=== PATIENT | female | born 1985 | race American Indian/Alaskan Native ===

== ENCOUNTER 2018-12-14 14:18 | Emergency (ER) | payer SELFPAY ==
--- NOTE | 2018-12-14 14:30 | Event Note ---
ED Screening Note Date of service: 12/14/18 Time: 14:27 ED Screening Note: 33 y/o female comes in for pelvic pain and vag bleeding This initial assessment/diagnostic orders/clinical plan/treatment(s) is/are subject to change based on patients health status, clinical progression and re-assessment by fellow clinical providers in the ED. Further treatment and workup at subsequent clinical providers discretion. Patient/guardian urged not to elope from the ED as their condition may be serious if not clinically assessed and managed. Initial orders include:
[2018-12-14 15:01] LABS: Basophils # (Auto) 0.1 K/mm3 (0.0-0.1); Basophils % (Auto) 0.4 % (0.0-1.8); Eosinophils # (Auto) 0.2 K/mm3 (0.0-0.4); Eosinophils % (Auto) 1.7 % (0.0-4.3); Hematocrit 41.2 % (30.3-42.9); Hemoglobin 13.5 gm/dl (10.1-14.3); Lymphocytes # (Auto) 2.4 K/mm3 (1.2-5.4); Lymphocytes % (Auto) 18.9 % (13.4-35.0); Mean Corpuscular HGB Conc 33 % (30-34); Mean Corpuscular Volume 85 fl (79-97); Monocytes # (Auto) 0.7 K/mm3 (0.0-0.8); Monocytes % (Auto) 5.9 % (0.0-7.3); Platelet Count 188 K/mm3 (140-440); Red Blood Count 4.85 M/mm3 (3.65-5.03); Red Cell Distribution Width 13.7 % (13.2-15.2)
[2018-12-14 15:25] LABS: Alanine Aminotransferase 14 units/L (7-56); BUN/Creatinine Ratio 20; Blood Urea Nitrogen 14 mg/dL (7-17); Hemolysis Index 68
[2018-12-14] MEDS ORDERED: NACL 0.9% 1000 ML 1,000 ML IV ONE (16:06)
[2018-12-14] MEDS ORDERED: TORADOL IV ONE (16:06)
--- NOTE | 2018-12-14 16:17 | Emergency Department Report ---
<PIA DELGADO P - Last Filed: 12/14/18 17:04> ED Female HPI - General Chief complaint: Vaginal Bleeding Stated complaint: ABD PAIN/EXTREME Time Seen by Provider: 12/14/18 14:26 Source: patient Mode of arrival: Wheelchair Limitations: No Limitations - History of Present Illness Initial comments: Reports hx of ovarian cyst. Reports she has been having vaginal bleeding periodically for over a month. Denies seeing ripsaw operator for symptoms. MD Complaint: vaginal bleeding, pelvic pain -: Gradual, days(s) (approximately 1 week gradually worsening) Location: suprapubic Radiation: non-radiating Severity: moderate Severity scale (0 -10): 4 Quality: cramping, aching Consistency: intermittent Improves with: none Worsens with: none Are you Now?: No Associated Symptoms: vaginal bleeding, abdominal pain. denies: vaginal d ischarge, nausea/vomiting, fever/chills, headaches, loss of appetite, dysuria, hematuria, rash, seizure, shortness of breath, syncope, weakness - Related Data Home Medications Medication Instructions Recorded Confirmed Last Taken ALBUTEROL Inhaler (OR & NICU) 2 puff INHALATION Q4-6H PRN 05/02/14 12/02/14 Unknown [ProAir HFA Inhaler] Previous Rx's Medication Instructions Recorded Last Taken Type Metoprolol [Lopressor TAB] 50 mg PO DAILY #60 tablet 05/02/14 12/01/14 Rx hydroCHLOROthiazide [HCTZ] 25 mg PO DAILY #60 tablet 05/02/14 12/01/14 Rx Butalb/Acetamin/Caff 50-325-40 1 each PO Q4H PRN #30 tablet 12/02/14 Unknown Rx [Fioricet] HYDROcodone/APAP 5-325 [[place] 1 each PO Q6HR PRN #20 tablet 12/02/14 Unknown Rx 5-325 mg TAB] Promethazine [Phenergan TAB] 25 mg PO Q6HR PRN #30 tab 12/02/14 Unknown Rx Ibuprofen [Motrin 800 MG tab] 800 mg PO Q8HR PRN #10 tablet 12/14/18 Unknown Rx Nitrofurantoin [place]/M-Cryst 100 mg PO Q12HR #14 capsule 12/14/18 Unknown Rx [Macrobid CAP] medroxyPROGESTERone ACETATE 5 mg PO QDAY #7 tablet 12/14/18 Unknown Rx [Provera] traMADol [Ultram] 50 mg PO Q6HR PRN #12 tablet 12/14/18 Unknown Rx Allergies Allergy/AdvReac Type Severity Reaction Status Date / Time No Known Allergies Allergy Unverified 05/02/14 10:36 ED Review of Systems Other: GENERAL: No weight change, fatigue, fever, chills, or night sweats SKIN: No changes in skin or hair, no itching, no rashes, no jaundice HEAD: No trauma, headache, or visual changes EYES: No blurriness, tearing, itching, acute visual loss, conjunctival discoloration, or scleral icterus EARS: No hearing loss, tinnitus, vertigo, or earache NOSE: No rhinorrhea, stuffiness, sneezing, itching, or epistaxis MOUTH: No bleeding gums, hoarseness, sore throat, or swelling CARDIAC: No new murmur, chest pain, palpitations, dyspnea on exertion, orthopnea, PND, or edema RESPIRATORY: No shortness of breath, wheeze, cough, sputum production, hemoptysis, pneumonia, asthma, bronchitis, or emphysema GI: No change in appetite, nausea, vomiting, dysphagia, diarrhea, constipation, hematemesis, melena, hematochezia, or abdominal pain URINARY: No frequency, urgency, polyuria, dysuria, hematuria, or incontinence MUSCULOSKELETAL: No muscle weakness, joint stiffness, decrease in range of motion, redness, swelling NEUROLOGIC: No headache, loss of sensation, numbness, tingling, tremors, weakness, paralysis, seizures HEMATOLOGIC: No anemia, easy bruising, bleeding, petechiae, or purpura ENDOCRINE: No hot or cold intolerance, sweating, polyuria, polydipsia or, polyphagia no thyroid problems PSYCHIATRIC: No change in mood, no anxiety, no depression GENITAL: Female: Vaginal bleeding for approximately one month. Pelvic pain for approxi mately 1 week. No dishcarge ED Past Medical Hx - Past Medical History Previous Medical History?: Yes Hx Hypertension: Yes Hx Headaches / Migraines: Yes Hx Asthma: Yes Additional medical history: Ovarian cysts - Surgical History Additional Surgical History: tubal ligation - Social History Smoking Status: Current Every Day Smoker Substance Use Type: None - Medications Home Medications: Home Medications Medication Instructions Recorded Confirmed Last Taken Type ALBUTEROL Inhaler (OR & NICU) 2 puff INHALATION Q4-6H PRN 05/02/14 12/02/14 Unknown History [ProAir HFA Inhaler] Metoprolol [Lopressor TAB] 50 mg PO DAILY #60 tablet 05/02/14 12/02/14 12/01/14 Rx hydroCHLOROthiazide [HCTZ] 25 mg PO DAILY #60 tablet 05/02/14 12/02/14 12/01/14 Rx Butalb/Acetamin/Caff 50-325-40 1 each PO Q4H PRN #30 tablet 12/02/14 Unknown Rx [Fioricet] HYDROcodone/APAP 5-325 [[place] 1 each PO Q6HR PRN #20 tablet 12/02/14 Unknown Rx 5-325 mg TAB] Promethazine [Phenergan TAB] 25 mg PO Q6HR PRN #30 tab 12/02/14 Unknown Rx Ibuprofen [Motrin 800 MG tab] 800 mg PO Q8HR PRN #10 tablet 12/14/18 Unknown Rx Nitrofurantoin [place]/M-Cryst 100 mg PO Q12HR #14 capsule 12/14/18 Unknown Rx [Macrobid CAP] medroxyPROGESTERone ACETATE 5 mg PO QDAY #7 tablet 12/14/18 Unknown Rx [Provera] traMADol [Ultram] 50 mg PO Q6HR PRN #12 tablet 12/14/18 Unknown Rx ED Physical Exam - General Limitations: No Limitations - Other Other exam information: GENERAL: Patient in no acute distress HEAD: Normocephalic, atraumatic EYES: PERRLA, EOM intact, no scleral icterus, no conjunctival hemorrhage, visual chin and acuity wnl NOSE: No tenderness, discharge, sinus tenderness MOUTH: No erythema, bleeding, exudate HEART: Regular rate and rhythm, no murmur, S1-S2 are auscultated, pulses are symmetric LUNGS: Bilateral breath sounds, No tachypnea, No retractions, No wheezing, rales, rhonchi ABDOMEN: Normal bowel sounds, abdomen soft, no tenderness, no rebound, no guarding, no distention, no masses, no CVA tenderness MUSCULOSKELETAL: Normal joint range of motion, no redness, no swelling, no tenderness NEUROLOGIC: GCS 15, Alert and Oriented x3, Cranial nerves intact, normal sensation, normal strength, normal gait, no cerebellar deficit, NIHSS 0 SKIN: Skin is warm and dry, no wounds, no rashes ED Medical Decision Making - Lab Data Result diagrams: 12/14/18 14:48 12/14/18 14:48 - Medical Decision Making At [address] Stone updated and agrees to follow up U/S result. ED Disposition Clinical Impression: DUB (dysfunctional uterine bleeding) UTI (urinary tract infection) Qualifiers: Urinary tract infection type: acute cystitis Hematuria presence: with hematuria Qualified Code(s): N30.01 - Acute cystitis with hematuria Disposition: TO HOME OR SELFCARE Condition: Stable Instructions: Urinary Tract Infection in Women (ED), Dysfunctional Uterine Bleeding (ED) Referrals: PRIMARY CAREMD [Primary Care Provider] - 3-5 Days <JAMILAH STONE - Last Filed: 12/14/18 19:01> ED Review of Systems ROS: Stated complaint: ABD PAIN/EXTREME Other details as noted in HPI ED Course Vital Signs 12/14/18 14:23 Temperature 98.6 F Pulse Rate 86 Respiratory 20 Rate Blood Pressure 180/104 O2 Sat by Pulse 98 Oximetry ED Medical Decision Making - Lab Data Result diagrams: 12/14/18 14:48 12/14/18 14:48 Lab Results 12/14/18 12/14/18 12/14/18 Range/Units 14:48 14:48 14:48 WBC 12.8 H (4.5-11.0) K/mm3 RBC 4.85 (3.65-5.03) M/mm3 Hgb 13.5 (10.1-14.3) gm/dl Hct 41.2 (30.3-42.9) % MCV 85 (79-97) fl MCH 28 (28-32) pg MCHC 33 (30-34) % RDW 13.7 (13.2-15.2) % Plt Count 188 (140-440) K/mm3 Lymph % (Auto) 18.9 (13.4-35.0) % [place] % (Auto) 5.9 (0.0-7.3) % Eos % (Auto) 1.7 (0.0-4.3) % Baso % (Auto) 0.4 (0.0-1.8) % Lymph # 2.4 (1.2-5.4) K/mm3 [place] # 0.7 (0.0-0.8) K/mm3 Eos # 0.2 (0.0-0.4) K/mm3 Baso # 0.1 (0.0-0.1) K/mm3 Seg Neutrophils % 73.1 H (40.0-70.0) % Seg Neutrophils # 9.3 H (1.8-7.7) K/mm3 Sodium 135 L (137-145) mmol/L Potassium 4.2 (3.6-5.0) mmol/L Chloride 99.8 (98-107) mmol/L Carbon Dioxide 21 L (22-30) mmol/L Anion Gap 18 mmol/L BUN 14 (7-17) mg/dL Creatinine 0.7 (0.7-1.2) mg/dL Estimated GFR > 60 ml/min BUN/Creatinine Ratio 20 % Glucose 95 (65-100) mg/dL Calcium 9.0 (8.4-10.2) mg/dL Total Bilirubin 0.20 (0.1-1.2) mg/dL AST 19 (5-40) units/L ALT 14 (7-56) units/L Alkaline Phosphatase 92 (35-129) units/L Total Protein 7.9 (6.3-8.2) g/dL Albumin 4.0 (3.9-5) g/dL Albumin/Globulin Ratio 1.0 % HCG, Qual Negative (Negative) Urine Color (Yellow) Urine Turbidity (Clear) Urine pH (5.0-7.0) Ur Specific [place] (1.003-1.030) Urine Protein (Negative) mg/dL Urine Glucose (UA) (Negative) mg/dL Urine Ketones (Negative) mg/dL Urine Blood (Negative) Urine Nitrite (Negative) Urine Bilirubin (Negative) Urine Urobilinogen (<2.0) mg/dL Ur Leukocyte Esterase (Negative) Urine WBC (Auto) (0.0-6.0) /HPF Urine RBC (Auto) (0.0-6.0) /HPF U Epithel Cells (Auto) (0-13.0) /HPF Urine Opiates Screen Urine Methadone Screen Ur Barbiturates Screen Ur Phencyclidine Scrn Ur Amphetamines Screen U Benzodiazepines Scrn Urine Cocaine Screen U Marijuana (THC) Screen Drugs of Abuse Note 12/14/18 12/14/18 Range/Units 16:37 16:37 WBC (4.5-11.0) K/mm3 RBC (3.65-5.03) M/mm3 Hgb (10.1-14.3) gm/dl Hct (30.3-42.9) % MCV (79-97) fl MCH (28-32) pg MCHC (30-34) % RDW (13.2-15.2) % Plt Count (140-440) K/mm3 Lymph % (Auto) (13.4-35.0) % [place] % (Auto) (0.0-7.3) % Eos % (Auto) (0.0-4.3) % Baso % (Auto) (0.0-1.8) % Lymph # (1.2-5.4) K/mm3 [place] # (0.0-0.8) K/mm3 Eos # (0.0-0.4) K/mm3 Baso # (0.0-0.1) K/mm3 Seg Neutrophils % (40.0-70.0) % Seg Neutrophils # (1.8-7.7) K/mm3 Sodium (137-145) mmol/L Potassium (3.6-5.0) mmol/L Chloride (98-107) mmol/L Carbon Dioxide (22-30) mmol/L Anion Gap mmol/L BUN (7-17) mg/dL Creatinine (0.7-1.2) mg/dL Estimated GFR ml/min BUN/Creatinine Ratio % Glucose (65-100) mg/dL Calcium (8.4-10.2) mg/dL Total Bilirubin (0.1-1.2) mg/dL AST (5-40) units/L ALT (7-56) units/L Alkaline Phosphatase (35-129) units/L Total Protein (6.3-8.2) g/dL Albumin (3.9-5) g/dL Albumin/Globulin Ratio % HCG, Qual (Negative) Urine Color Straw (Yellow) Urine Turbidity Clear (Clear) Urine pH 5.0 (5.0-7.0) Ur Specific [place] 1.010 (1.003-1.030) Urine Protein <15 mg/dl (Negative) mg/dL Urine Glucose (UA) Neg (Negative) mg/dL Urine Ketones Neg (Negative) mg/dL Urine Blood Lg (Negative) Urine Nitrite Neg (Negative) Urine Bilirubin Neg (Negative) Urine Urobilinogen < 2.0 (<2.0) mg/dL Ur Leukocyte Esterase Mod (Negative) Urine WBC (Auto) 22.0 H (0.0-6.0) /HPF Urine RBC (Auto) 39.0 (0.0-6.0) /HPF U Epithel Cells (Auto) 1.0 (0-13.0) /HPF Urine Opiates Screen Presumptive negative Urine Methadone Screen Presumptive negative Ur Barbiturates Screen Presumptive negative Ur Phencyclidine Scrn Presumptive negative Ur Amphetamines Screen Presumptive negative U Benzodiazepines Scrn Presumptive negative Urine Cocaine Screen Presumptive negative U Marijuana (THC) Screen Presumptive positive Drugs of Abuse Note Disclamer - Radiology Data [facility] [address] [place] [address] Ultrasound Report Signed Patient: ROCHELLE ANTOINE MR#: [id number] : 1985 Acct:[id number] Age/Sex: 33 / F ADM Date: 12/14/18 Loc: ED Attending Dr: Ordering Physician: PIA DELGADO MD Date of Service: 12/14/18 Procedure(s): US pelvis duplex doppler comp Accession Number(s): [id number] cc: PIA DELGADO MD ULTRASOUND PELVIS INDICATION: Pelvic pain for one week. TECHNIQUE: Transabdominal. Duplex Color Doppler used: Yes. COMPARISON: None available FINDINGS: Uterus: Present. Size: 8.8 x 5.2 x 7.0 cm. Endometrial complex: Normal measuring 0.8 cm. Mass lesions: None. Additional findings: None. Right Ovary: Size: 2.3 x 1.8 x 2.2 cm Blood flow: Normal. Cyst or mass: None. Left Ovary: Size: 2.5 x 1.9 x 1.5 cm Blood flow: Normal. Cyst or mass: None. Urinary Bladder: Normal. Free Fluid: None. Additional Findings: None. IMPRESSION: No acute sonographic abnormality of the pelvis. Signer Name: Los Bernard MD Signed: 12/14/2018 6:09 PM Workstation Name: [id number] Transcribed By: MN Dictated By: Los Bernard MD Electronically Authenticated By: Los Bernard MD Signed Date/Time: 08/24/19 1809 - Medical Decision Making Patient's ultrasound was negative for any acute process. The patient states she's had abnormal heavy vaginal bleeding for approximately a week which is abnormal for her. Patient states she has been passing clots. She has some suprapubic pain as well. Patient be referred to her ELECTRONICS WORKER for further management for the dysfunctional uterine bleeding. Patient does have some moderate leuk esterase and some WBCs in her urine will be also treated with antibiotics for UTI. Patient discharged home. Critical care attestation.: If time is entered above; I have spent that time in minutes in the direct care of this critically ill patient, excluding procedure time. ED Disposition Is pt being admited?: No Does the pt Need Aspirin: No Time of Disposition: 19:00
[2018-12-14 17:07] LABS: Bilirubin,Urine NEG (Negative); Blood,Urine LG (Negative); Color,Urine Straw (Yellow); Protein,Urine <15 mg/dL mg/dL (Negative); Urobilinogen,Urine < 2.0 mg/dL (<2.0)
[2018-12-14 17:16] LABS: Amphetamine Screen,Urine PRESUMPTIVE NEGATIVE; Benzodiazepines Screen,Urine PRESUMPTIVE NEGATIVE; Cocaine Screen,Urine PRESUMPTIVE NEGATIVE; Methadone Screen,Urine PRESUMPTIVE NEGATIVE; Opiate Screen,Urine PRESUMPTIVE NEGATIVE
[2018-12-14 17:43] LABS: Cannabinoid Screen,Urine PRESUMPTIVE POSITIVE
--- NOTE | 2018-12-14 18:13 | Ultrasound Report ---
ULTRASOUND PELVIS INDICATION: Pelvic pain for one week. TECHNIQUE: Transabdominal. Duplex Color Doppler used: Yes. COMPARISON: None available FINDINGS: Uterus: Present. Size: 8.8 x 5.2 x 7.0 cm. Endometrial complex: Normal measuring 0.8 cm. Mass lesions: None. Additional findings: None. Right Ovary: Size: 2.3 x 1.8 x 2.2 cm Blood flow: Normal. Cyst or mass: None. Left Ovary: Size: 2.5 x 1.9 x 1.5 cm Blood flow: Normal. Cyst or mass: None. Urinary Bladder: Normal. Free Fluid: None. Additional Findings: None. IMPRESSION: No acute sonographic abnormality of the pelvis. Signer Name: Los Bernard MD Signed: 12/14/2018 6:09 PM Workstation Name: [id number]
[2018-12-14 19:25] VITALS: BP 162/108
== END 2018-12-14 19:24 | disposition home or self-care (01) ==
LOC: ED 14:18
DX: N39.0 Urinary tract infection, site not specified (principal); N93.8 Other specified abnormal uterine and vaginal bleeding; I10 Essential (primary) hypertension; G43.909 Migraine, unspecified, not intractable, without status migrainosus; J45.909 Unspecified asthma, uncomplicated; F17.200 Nicotine dependence, unspecified, uncomplicated
CPT/HCPCS: 36415; 80053; 80307; 81001; 84703; 85025; 87086; 93975; 96374; 99284; J1885; J7030

== ENCOUNTER 2018-12-19 08:50 | Emergency (ER) | payer SELFPAY ==
--- NOTE | 2018-12-19 09:39 | Emergency Department Report ---
ED Abdominal Pain HPI - General Chief Complaint: Abdominal Pain Stated Complaint: PELVIC PAIN Time Seen by Provider: 12/19/18 09:15 Source: patient Mode of arrival: Stretcher Limitations: No Limitations - History of Present Illness Initial Comments: Patient is a 33-year-old female that presents emergency room with complaints of abdominal pain. Patient states her abdominal pain started a week ago. Patient states she was seen here 3 days ago and is not improving. Patient is also complaining of nausea vomiting. Patient states she's had nausea and vomiting for solid 24-48 hours. Patient unable to hold anything down. Patient states her abdominal pain is 10 out of 10. Patient states pain is worse with movement and palpation. Patient states pain is better with rest. Patient states herLMP was 11/19/2018. Patient states she had a Pap smear 5 months ago no vomiting was normal. Patient denies the chance of . Patient states she hasn't had sex since longtime. Patient's was negative and her last visit here. Patient states she has not followed up with any other physician for these problems except for this emergency room. Patient states she had an ultrasound last visit and was negative. Patient states she had vaginal bleeding for which she was given Provera and her vaginal bleeding has stopped. Patient states she was diagnosed with dysfunctional uterine bleeding. MD Complaint: abdominal pain -: Sudden Location: suprapubic Radiation: none Migration to: no migration Severity: severe Severity scale (0 -10): 10 Quality: stabbing Consistency: constant Improves With: rest Worsens With: vomiting, movement Associated Symptoms: nausea, vomiting. denies: diarrhea, fever, chills, constipation, dysuria, hematemesis, hematochezia, melena, hematuria, anorexia, syncope - Related Data Home Medications Medication Instructions Recorded Confirmed Last Taken ALBUTEROL Inhaler (OR & NICU) 2 puff INHALATION Q4-6H PRN 05/02/14 12/02/14 Unknown [ProAir HFA Inhaler] Previous Rx's Medication Instructions Recorded Last Taken Type Metoprolol [Lopressor TAB] 50 mg PO DAILY #60 tablet 05/02/14 12/01/14 Rx hydroCHLOROthiazide [HCTZ] 25 mg PO DAILY #60 tablet 05/02/14 12/01/14 Rx Butalb/Acetamin/Caff 50-325-40 1 each PO Q4H PRN #30 tablet 12/02/14 Unknown Rx [Fioricet] HYDROcodone/APAP 5-325 [[place] 1 each PO Q6HR PRN #20 tablet 12/02/14 Unknown Rx 5-325 mg TAB] Promethazine [Phenergan TAB] 25 mg PO Q6HR PRN #30 tab 12/02/14 Unknown Rx Ibuprofen [Motrin 800 MG tab] 800 mg PO Q8HR PRN #10 tablet 12/14/18 Unknown Rx Nitrofurantoin [place]/M-Cryst 100 mg PO Q12HR #14 capsule 12/14/18 Unknown Rx [Macrobid CAP] medroxyPROGESTERone ACETATE 5 mg PO QDAY #7 tablet 12/14/18 Unknown Rx [Provera] traMADol [Ultram] 50 mg PO Q6HR PRN #12 tablet 12/14/18 Unknown Rx HYDROcodone/APAP 5-325 [[place] 1 each PO Q4HR PRN #10 tablet 12/19/18 Unknown Rx 5/325] Ondansetron [Zofran Odt] 4 mg PO Q6HR PRN #15 tab.rapdis 12/19/18 Unknown Rx Sulfamethoxazole/Trimethoprim 1 each PO BID 10 Days #20 tablet 12/19/18 Unknown Rx [Bactrim DS TAB] Allergies Allergy/AdvReac Type Severity Reaction Status Date / Time No Known Allergies Allergy Unverified 05/02/14 10:36 ED Review of Systems ROS: Stated complaint: PELVIC PAIN Other details as noted in HPI Constitutional: denies: chills, fever Eyes: denies: eye pain, eye discharge, vision change ENT: denies: ear pain, throat pain Respiratory: denies: cough, shortness of breath, wheezing Cardiovascular: denies: chest pain, palpitations Endocrine: no symptoms reported Gastrointestinal: abdominal pain, nausea, vomiting. denies: diarrhea Genitourinary: denies: urgency, dysuria, discharge Musculoskeletal: denies: back pain, joint swelling, arthralgia Skin: denies: rash, lesions Neurological: denies: headache, weakness, paresthesias Psychiatric: denies: anxiety, depression Hematological/Lymphatic: denies: easy bleeding, easy bruising ED Past Medical Hx - Past Medical History Previous Medical History?: Yes Hx Hypertension: Yes Hx Headaches / Migraines: Yes Hx Asthma: Yes Additional medical history: Ovarian cysts - Surgical History Past Surgical History?: Yes Additional Surgical History: tubal ligation - Family History Family history: no significant - Social History Smoking Status: Never Smoker Substance Use Type: None - Medications Home Medications: Home Medications Medication Instructions Recorded Confirmed Last Taken Type ALBUTEROL Inhaler (OR & NICU) 2 puff INHALATION Q4-6H PRN 05/02/14 12/02/14 Unknown History [ProAir HFA Inhaler] Metoprolol [Lopressor TAB] 50 mg PO DAILY #60 tablet 05/02/14 12/02/14 12/01/14 Rx hydroCHLOROthiazide [HCTZ] 25 mg PO DAILY #60 tablet 05/02/14 12/02/14 12/01/14 Rx Butalb/Acetamin/Caff 50-325-40 1 each PO Q4H PRN #30 tablet 12/02/14 Unknown Rx [Fioricet] HYDROcodone/APAP 5-325 [[place] 1 each PO Q6HR PRN #20 tablet 12/02/14 Unknown Rx 5-325 mg TAB] Promethazine [Phenergan TAB] 25 mg PO Q6HR PRN #30 tab 12/02/14 Unknown Rx Ibuprofen [Motrin 800 MG tab] 800 mg PO Q8HR PRN #10 tablet 12/14/18 Unknown Rx Nitrofurantoin [place]/M-Cryst 100 mg PO Q12HR #14 capsule 12/14/18 Unknown Rx [Macrobid CAP] medroxyPROGESTERone ACETATE 5 mg PO QDAY #7 tablet 12/14/18 Unknown Rx [Provera] traMADol [Ultram] 50 mg PO Q6HR PRN #12 tablet 12/14/18 Unknown Rx HYDROcodone/APAP 5-325 [[place] 1 each PO Q4HR PRN #10 tablet 12/19/18 Unknown Rx 5/325] Ondansetron [Zofran Odt] 4 mg PO Q6HR PRN #15 tab.rapdis 12/19/18 Unknown Rx Sulfamethoxazole/Trimethoprim 1 each PO BID 10 Days #20 tablet 12/19/18 Unknown Rx [Bactrim DS TAB] ED Physical Exam - General Limitations: No Limitations General appearance: alert, in no apparent distress - Head Head exam: Present: atraumatic, normocephalic - Eye Eye exam: Present: normal appearance - ENT ENT exam: Present: mucous membranes moist - Neck Neck exam: Present: normal inspection - Respiratory Respiratory exam: Present: normal lung sounds bilaterally. Absent: respiratory distress - Cardiovascular Cardiovascular Exam: Present: regular rate, normal rhythm. Absent: systolic murmur, diastolic murmur, rubs, gallop - GI/Abdominal GI/Abdominal exam: Present: soft, tenderness (suprapubic tenderness), normal bowel sounds - Extremities Exam Extremities exam: Present: normal inspection - Back Exam Back exam: Present: normal inspection - Neurological Exam Neurological exam: Present: alert, oriented X3 - Psychiatric Psychiatric exam: Present: normal affect, normal mood - Skin Skin exam: Present: warm, dry, intact, normal color. Absent: rash ED Course Vital Signs 12/19/18 12/19/18 09:08 12:19 Temperature 97.6 F Pulse Rate 73 50 L Respiratory 16 16 Rate Blood Pressure 181/100 Blood Pressure 139/82 [Left] O2 Sat by Pulse 99 96 Oximetry - Reevaluation(s) Reevaluation #1: Initial Evaluation done. Patient will be given pain medications. Patient s tates her nausea is pretty good at this time that she was given Zofran by EMS. Patient's ultrasound review. Patient's last visit and labs were reviewed. 12/19/18 09:45 Reevaluation #2: CT abdomen is still pending. Patient signed out to oncoming physician, Dr. Johnson. Dr. Johnson will give final dispo once the CT has come back. 12/19/18 16:28 ED Medical Decision Making - Lab Data Result diagrams: 12/19/18 11:25 12/19/18 11:25 Critical care attestation.: If time is entered above; I have spent that time in minutes in the direct care of this critically ill patient, excluding procedure time. ED Disposition Clinical Impression: Gastroenteritis UTI (urinary tract infection) Qualifiers: Urinary tract infection type: acute cystitis Hematuria presence: with hematuria Qualified Code(s): N30.01 - Acute cystitis with hematuria Abdominal pain Qualifiers: Abdominal location: lower abdomen, unspecified Qualified Code(s): R10.30 - Lower abdominal pain, unspecified Nausea & vomiting Qualifiers: Vomiting type: unspecified Vomiting Intractability: non-intractable Qualified Code(s): R11.2 - Nausea with vomiting, unspecified Disposition: TO HOME OR SELFCARE Is pt being admited?: No Does the pt Need Aspirin: No Condition: Stable Instructions: Abdominal Pain (ED), Urinary Tract Infection in Women (ED) Additional Instructions: Patient to follow-up with primary care in 2-3 days. Patient to return to ER if condition worsens. Patient to rest. Patient to increase water. Patient to take meds as directed. 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 Prescriptions: Sulfamethoxazole/Trimethoprim [Bactrim DS TAB] 1 each PO BID 10 Days #20 tablet HYDROcodone/APAP 5-325 [[place] 5/325] 1 each PO Q4HR PRN #10 tablet PRN Reason: Pain Ondansetron [Zofran Odt] 4 mg PO Q6HR PRN #15 tab.rapdis PRN Reason: Nausea And Vomiting Referrals: LIAM RIVERA MD [Primary Care Provider] - 2-3 Days
[2018-12-19] MEDS: NACL 0.9% 1000 ML 1,000 ML IV ONE (09:54)
[2018-12-19] MEDS: DILAUDID IV ONE ×2 (09:54→14:18)
[2018-12-19 12:01] LABS: Alanine Aminotransferase 14 units/L (7-56); Albumin 3.7 g/dL (3.9-5); BUN/Creatinine Ratio 20; Blood Urea Nitrogen 14 mg/dL (7-17); Calcium 8.7 mg/dL (8.4-10.2); Hemolysis Index 11
[2018-12-19 12:08] LABS: Basophils % (Auto) 0.2 % (0.0-1.8); Eosinophils % (Auto) 0.1 % (0.0-4.3); Hematocrit 36.2 % (30.3-42.9); Hemoglobin 12.1 gm/dl (10.1-14.3); Lymphocytes # (Auto) 0.7 K/mm3 (1.2-5.4); Lymphocytes % (Auto) 7.6 % (13.4-35.0); Mean Corpuscular HGB Conc 34 % (30-34); Mean Corpuscular Volume 83 fl (79-97); Monocytes # (Auto) 0.3 K/mm3 (0.0-0.8); Monocytes % (Auto) 2.8 % (0.0-7.3); Platelet Count 175 K/mm3 (140-440); Red Blood Count 4.34 M/mm3 (3.65-5.03); Red Cell Distribution Width 13.6 % (13.2-15.2)
[2018-12-19 12:53] LABS: Bacteria,Urine 1+ /HPF (Negative); Bilirubin,Urine NEG (Negative); Blood,Urine SM (Negative); Color,Urine Yellow (Yellow); Mucus,Urine FEW /HPF; Protein,Urine <15 mg/dL mg/dL (Negative); Urobilinogen,Urine < 2.0 mg/dL (<2.0)
[2018-12-19] MEDS ORDERED: ZOFRAN ONE (14:15)
[2018-12-19] MEDS ORDERED: DILAUDID ONE (14:16)
[2018-12-19] MEDS: ZOFRAN IV ONE (14:18)
--- NOTE | 2018-12-19 17:26 | Cat Scan Report ---
CT ABDOMEN AND PELVIS WITH CONTRAST INDICATION: abd paiin. TECHNIQUE: Axial CT images were obtained through the abdomen and pelvis after 100 cc Omnipaque [address] scans at this location are performed using CT dose reduction for ALARA by means of automated exposure control. COMPARISON: None available. FINDINGS: LOWER CHEST: No significant abnormality. LIVER: Tiny 1 cm hepatic hemangioma within the medial hepatic segment near dome image 15. No other li [place] lesions. GALLBLADDER: No significant abnormality. BILE DUCTS: No significant abnormality. PANCREAS: No significant abnormality. SPLEEN: No significant abnormality. ADRENALS: No significant abnormality. RIGHT KIDNEY and URETER: No significant abnormality. LEFT KIDNEY and URETER: No significant abnormality. STOMACH and SMALL BOWEL: No significant abnormality. COLON: No significant abnormality. APPENDIX: Normal PERITONEUM: Small amount of left-sided free pelvic fluid No free air. No fluid collection. LYMPH NODES: No significant adenopathy. AORTA and ARTERIES: No significant abnormality. IVC and VEINS: No significant abnormality. URINARY BLADDER: No significant abnormality. REPRODUCTIVE ORGANS: 1.5 cm left ovarian corpus luteal cyst. Uterus and right ovary appear within nor mal limits ADDITIONAL FINDINGS: None. SKELETAL SYSTEM: No significant abnormality. IMPRESSION: 1. 1.5 cm left ovarian corpus luteal cyst with small amount of free pelvic fluid likely secondary to cyst rupture/leakage. 2. No CT evidence for appendicitis or other acute inflammatory process. 3. Incidental tiny 1 cm hepatic hemangioma Signer Name: Cameron Baca MD Signed: 12/19/2018 5:22 PM Workstation Name: [id number]
[2018-12-19 17:54] VITALS: BP 149/70
== END 2018-12-19 18:23 | disposition home or self-care (01) ==
LOC: ED 08:50
DX: K52.9 Noninfective gastroenteritis and colitis, unspecified (principal); N39.0 Urinary tract infection, site not specified; I10 Essential (primary) hypertension; G43.909 Migraine, unspecified, not intractable, without status migrainosus; J45.909 Unspecified asthma, uncomplicated; Z98.890 Other specified postprocedural states; Z98.51 Tubal ligation status; Z79.899 Other long term (current) drug therapy
CPT/HCPCS: 36415; 74177; 80053; 81001; 84703; 85025; 96361; 96374; 96375; 96376; 99284; J1170; J2405; J7030; Q9967